=== PATIENT | male | born 1970 | race Two or more races ===

== ENCOUNTER 2021-07-19 19:28 | Emergency (ER) | payer OTHER ==
[~2021-07-19] VITALS: Ht 167.6 cm; Wt 65.8 kg
[2021-07-19] MEDS ORDERED: CELCEPT (19:49)
== END 2021-07-20 00:29 | disposition home or self-care (01) ==
LOC: ER 19:28
DX: L08.9 Local infection of the skin and subcutaneous tissue, unspecified (principal); R53.81 Other malaise